=== PATIENT | female | born 1945 | race Caucasian/White ===

== ENCOUNTER → 2020-08-09 11:56 | Outpatient (CLI) | payer MEDICARE, SELFPAY ==
--- NOTE | ~2020-08-09 | MM_ITS ---
EXAMINATION: MM screening guy BI w shad HISTORY: Screening mammogram TECHNIQUE: Craniocaudal and mediolateral oblique 3-D tomosynthesis images were obtained and synthetic 2-D images were generated. CAD analysis was submitted and interpreted. COMPARISON: 05/21/2019, 02/08/2017 bilateral digital screening mammogram examinations BREAST PARENCHYMAL COMPOSITION: The breasts are almost entirely fatty. FINDINGS: There is no evidence of suspicious mass, calcification, or architectural distortion to sugg est malignancy in either breast. There has been no suspicious interval change. IMPRESSION: 1. No mammographic evidence of malignancy. 2. Recommend routine screening mammography in one year. BI-RADS Category 1: Negative Reviewed, dictated and finalized at location A.
== END ==
PROVIDERS: PCP Internal Medicine; Visit Provider Nurse Practitioner Family
DX: Z12.31 Encounter for screening mammogram for malignant neoplasm of breast (principal)
CPT/HCPCS: 77063; 77067

== ENCOUNTER 2023-07-22 14:06 | Emergency (ER) | payer MEDICARE, SELFPAY ==
[2023-07-22 14:42] VITALS: BP 152/78; PULSE 73; RESP 18; TEMP 36.1; O2SAT 97
--- NOTE | 2023-07-22 14:49 | ED.EAR ---
HPI - Ear Problem General Chief complaint: Ear Stated complaint: Bilateral Ear Irritation Time Seen by Provider: 07/22/23 14:45 Source: patient Mode of arrival: ambulatory Limitations: no limitations History of Present Illness HPI Narrative: July is a 77-year-old female patient presenting to clinic today with complaints of right ear pain. She reports that she is having some yellowish green discharge coming from the right ear times 5 days. States that she had her ears irrigated on and developed pain shortly after. She denies any fever or chills. Related Data Home Medications Medication Instructions Recorded Confirmed atorvastatin 10 mg tablet 10 mg PO HS 07/22/23 07/22/23 blood sugar diagnostic ([facility] 07/22/23 07/22/23 Verio test strips) dulaglutide 3 mg/0.5 mL 3 mg subcut WEEKLY 07/22/23 07/22/23 [facility] glimepiride 4 mg tablet 4 mg PO DAILY 07/22/23 07/22/23 lancets 33 gauge ([facility] 07/22/23 07/22/23 Plus Lancet) metoprolol tartrate 50 mg tablet 50 mg PO BID 07/22/23 07/22/23 Allergies Allergy/AdvReac Type Severity Reaction Status Date / Time Sulfa (Sulfonamide AdvReac Mild Rash Verified 07/22/23 14:51 Antibiotics) Review of Systems Review of Systems: Pertinent positives per HPI. Patient denies any fever, chills, rash, headache, visual changes, dizziness, cough, runny nose, sore throat, shortness of breath, chest pain, palpitations, nausea, vomiting, diarrhea, constipation, abdominal pain, or any urinary issues. [facility] Family History Family History Mother Family history of cardiovascular disease Father Carcinoma of colon, Onset Age: 72 Social History Social History Smoking status: Never smoker Alcohol intake: never Comments At the time of my signature, I reviewed and agree with the nursing past medical, surgical, social, and family history. There is no relevant family history pertinent to the patient complaint. Exam Narrative: General: Well-developed, well nourished, in no apparent distress Head: Normocephalic, atraumatic Eyes: Pupils equally round and reactive to light bilaterally, EOM intact, sclera and conjunctive clear, no discharge, lids normal Ears: TMs intact and clear, left ear canals clear, right ear canal swollen, red, with green otorrhea, tenderness to palpation over the tragus and pulling of the pinna to the left ear, grossly hearing normal. Nose: Nares patent, no discharge, no inflammation, no sinus tenderness. Mouth: Oropharynx without lesions or masses, good dentition, MMM. Neck: Supple, trachea midline, no enlargement of anterior or posterior cervical nodes, no thyroid masses or goiter palpable. Cardio: Regular rate and rhythm, s1 and s2 normal, no murmur appreciated. Resp: Clear to auscultation bilaterally anteriorly and posteriorly, no rhonchi, rales, wheezing or rubs Course Course Emergency Course: Portions of this record may have been created with voice recognition software. Level of Care: Express Care Visit Vital Signs Vital signs: Vital Signs Temperature 36.1 C L 07/22/23 14:42 Pulse Rate 73 07/22/23 14:42 Respiratory Rate 18 07/22/23 14:42 Blood Pressure 152/78 H 07/22/23 14:42 Pulse Oximetry 97 07/22/23 14:42 Oxygen Delivery Room Air 07/22/23 14:42 Temperature 36.1 C L 07/22/23 14:42 Pulse Rate 73 07/22/23 14:42 Respiratory Rate 18 07/22/23 14:42 Blood Pressure 152/78 H 07/22/23 14:42 Pulse Oximetry 97 07/22/23 14:42 Oxygen Delivery Room Air 07/22/23 14:42 Vital signs reviewed Procedures Other Procedure Procedure 1: Other Procedure: Verbal consent obtained for ear wick insertion. Ear wick was inserted using a needle forceps. Patient tolerated well Medical Decision Making [facility] de
== END 2023-07-22 14:54 | disposition home or self-care (01) ==
PROVIDERS: Emergency Provider Nurse Practitioner Family; PCP Internal Medicine
DX: H60.311 Diffuse otitis externa, right ear (principal); E78.00 Pure hypercholesterolemia, unspecified; I10 Essential (primary) hypertension; M19.90 Unspecified osteoarthritis, unspecified site; E11.9 Type 2 diabetes mellitus without complications; Z98.84 Bariatric surgery status
CPT/HCPCS: 99213; G0463